=== PATIENT | male | born 1970 | race American Indian/Alaskan Native ===

== ENCOUNTER 2022-02-07 01:49 | Emergency (ER) | payer MEDICAID ==
[2022-02-07 02:22] VITALS: BP 120/76
[2022-02-07 03:31] LABS: Basophils # (Auto) 0.1 K/mm3 (0.0-0.1); Basophils % (Auto) 0.7 % (0.0-1.8); Eosinophils % (Auto) 0.4 % (0.0-4.3); Hematocrit 43.8 % (35.5-45.6); Hemoglobin 15.3 gm/dl (11.8-15.2); Lymphocytes # (Auto) 2.4 K/mm3 (1.2-5.4); Mean Corpuscular HGB Conc 35 % (32-34); Mean Corpuscular Volume 92 fl (84-94); Monocytes # (Auto) 0.7 K/mm3 (0.0-0.8); Monocytes % (Auto) 7.9 % (0.0-7.3); Platelet Count 206 K/mm3 (140-440); Red Blood Count 4.75 M/mm3 (3.65-5.03); Red Cell Distribution Width 13.4 % (13.2-15.2)
[2022-02-07 03:43] LABS: Alanine Aminotransferase 75 units/L (7-56); Albumin 4.4 g/dL (3.9-5); BUN/Creatinine Ratio 18; Bilirubin,Direct 0.4 mg/dL (0-0.2); Blood Urea Nitrogen 21 mg/dL (9-20); Calcium 8.7 mg/dL (8.4-10.2); Hemolysis Index 8
[2022-02-07] MEDS ORDERED: levETIRAcetam 1000 MG/NS 0.75% 1,000 MG/100 ML BAG IV ONE (03:45)
[2022-02-07] MEDS ORDERED: SODIUM CHLORIDE 0.9% 1000 ML 1,000 ML IV ONE (03:50)
--- NOTE | 2022-02-07 04:57 | XRay Report ---
LUMBAR SPINE 2 VIEWS INDICATION: Bilateral lumbar pain after fall. COMPARISON: No relevant prior imaging study available. FINDINGS: VERTEBRAE: No acute fracture. Normal alignment. DISC SPACES: No significant abnormality. FACET JOINTS: No significant abnormality. SOFT TISSUES: No significant abnormality. ADDITIONAL FINDINGS: No additional significant findings. IMPRESSION: 1. No acute findings. Signer Name: Kermit Murphy MD Signed: 02/07/2022 4:53 AM Workstation Name: [id number]
--- NOTE | 2022-02-07 05:14 | Cat Scan Report ---
CT HEAD WITHOUT CONTRAST INDICATION / CLINICAL INFORMATION: fall, intoxicated, hx of HIV; head/neck trauma. TECHNIQUE: All CT scans at this location are performed using CT dose reduction for ALARA by means of automated exposure control. COMPARISON: None available. FINDINGS: Motion artifact limits this exam. BRAIN PARENCHYMA: No acute intracranial hemorrhage. No evidence of recent infarct. No mass effect or midline shift. There is multifocal encephalomalacia, most notable superiorly along the left parietal lobe, likely related to prior infarcts. There is decreased attenuation along the periventricular whit e matter likely represent chronic microangiopathy. VENTRICULAR SYSTEM/EXTRA-AXIAL SPACES: Ventricles are normal for age. No extra-axial fluid collection . ORBITS: Normal as visualized. SKELETAL SYSTEM/SOFT TISSUES: Normal bones and soft tissues. PARANASAL SINUSES/MASTOID AIR CELLS: No significant abnormality. ADDITIONAL FINDINGS: None. IMPRESSION: 1. No acute intracranial abnormality. 2. Additional findings as above. Signer Name: Kermit Murphy MD Signed: 02/07/2022 5:09 AM Workstation Name: [id number]
--- NOTE | 2022-02-07 05:15 | Cat Scan Report ---
CT CERVICAL SPINE WITHOUT CONTRAST INDICATION: Intoxicated with possible neck injury after fall. COMPARISON: None available. TECHNIQUE: Axial, coronal and sagittal CT imaging of the cervical spine without contrast was performe d. All CT scans at this location are performed using CT dose reduction for ALARA by means of automat ed exposure control. FINDINGS: ALIGNMENT: Normal alignment. VERTEBRAE: No fracture. Vertebral body heights are preserved. C1 and C2 are congruent. SPONDYLOSIS: No significant spondylosis. SOFT TISSUES: No significant soft tissue abnormality. ADDITIONAL FINDINGS: No significant additional findings. IMPRESSION: 1. No acute findings. Signer Name: Kermit Murphy MD Signed: 02/07/2022 5:11 AM Workstation Name: [id number]
--- NOTE | 2022-02-07 05:31 | Emergency Department Report ---
HPI - General Chief Complaint: Hypoglycemia PUI?: No Time Seen by Provider: 02/07/22 03:45 - HPI HPI: 51-year-old male with history of HIV, prior stroke, seizure disorder, bibems for ground level fall, back pain, and hypoglycemia. Pt states "I was getting lit for my birthday b/c it's coming up!" and was drinking alcohol. He states he was sitting up top of a wall that was not more than approximately 3 feet off the ground while drinking alcohol. He states when he tried to get off, he fell, and landed on his lower back. He complains of mild lower back pain and reports he had much some difficulty getting up but was able to walk. He states bystanders called EMS EMS and EMS checked his fingerstick and it was "low." Patient states he does not have a history of diabetes and states "I only ate breakfast in the morning and nothing else." He denies any fecal or urinary incontinence or retention. No tingling numbness in his arms or legs. Pain currently 1 out of 10. ED Past Medical Hx - Past Medical History Hx CVA: Yes Hx HIV: Yes - Family History Family history: no significant - Social History Smoking Status: Smoker, Current Status Unknown Substance Use Type: Alcohol ED Review of Systems ROS: Stated complaint: HYPOGLYCEMIA Other details as noted in HPI Comment: All other systems reviewed and negative Constitutional: no symptoms reported Eyes: as per HPI. denies: eye pain, eye discharge, vision change ENT: denies: as per HPI, ear pain, throat pain, dental pain, hearing loss Respiratory: denies: no symptoms reported, see HPI, cough, orthopnea, shortness of breath, SOB with exertion, SOB at rest Cardiovascular: denies: chest pain, palpitations, dyspnea on exertion, orthopnea, edema, syncope, paroxysmal nocturnal dyspnea Gastrointestinal: denies: abdominal pain, nausea, vomiting, diarrhea, constip ation, hematemesis, melena, hematochezia Genitourinary: denies: as per HPI, urgency, dysuria, frequency, hematuria, discharge Musculoskeletal: as per HPI, back pain Skin: denies: rash, lesions, change in color, change in hair/nails, pruritus Neurological: denies: headache, weakness, numbness Psychiatric: denies: anxiety, depression, auditory hallucinations, visual hallucinations, homicidal thoughts, suicidal thoughts Hematological/Lymphatic: denies: easy bleeding, easy bruising, swollen glands Physical Exam - Physical Exam Vital Signs: Vital Signs 02/07/22 02:16 Temperature 98 F Pulse Rate 80 Respiratory 16 Rate Blood Pressure 120/76 [Right] O2 Sat by Pulse 96 Oximetry General: Gen: pt is well appearing, no acute distress HEENT: Normocephalic atraumatic pupils equally round and reactive to light extraocular muscles intact sclera anicteric Neck: Full range of motion, no midline spinal tenderness palpation, no JVD, no carotid bruits, no nuchal rigidity CVS: S1-S2 regular rate and rhythm with no gallops rubs or murmurs, chest wall nontender Pulmonary: Clear to auscultation bilaterally, no wheezes rales or rhonchi Abdomen: Soft nondistended nontender no guarding or rebound tenderness, no palpable deformities or step-offs, normal active bowel sounds, no hepatosplenomegaly, no pulsatile masses : Deferred Extremities: No cyanosis no clubbing no edema, intact distal peripheral pulses, Integumentary: Skin normal, no petechia no purpura no abscess no lacerations no evidence of trauma no evidence of infection Neuro: Patient is awake alert and oriented to person place time situation, mentating well, cranial nerves II through XII intact, no focal neurodeficits, sensation grossly tact Psych: Calm cooperative, mood affect normal ED Course Vital Signs 02/07/22 02:16 Temperature 98 F Pulse Rate 80 Respiratory 16 Rate Blood Pressure 120/76 [Right] O2 Sat by Pulse 96 Oximetry - Reevaluation(s) Reevaluation #1: 02/07/22 05:34 Patient reassessed. He is comfortable and well-appearing, will continue to m onitor. ED Medical Decision Making - Lab Data Result diagrams: 02/07/22 03:01 02/07/22 03:01 - Radiology Data Radiology results: report reviewed - Medical Decision Making 51-year-old male with multiple medical comorbidities presents for hypoglycemia, ground-level fall, alcohol intoxication.. Vital signs stable. Labs reviewed. Patient's rmentation remained normal throughout his ED course. He has no clinical signs/symptoms of intoxiction. Serum glucose levels improved with intervention in the ER and remained stable. Diagnostic imaging negative for any acute pathology. On exam patient has no soft tissue tenderness palpation and no overt evidence of trauma or infection. No further emergent work-up warranted. Patient stable for discharge to home. Critical Care Time: No Critical care attestation.: If time is entered above; I have spent that time in minutes in the direct care of this critically ill patient, excluding procedure time. ED Disposition Clinical Impression: Hypoglycemia, Alcohol intoxication Disposition: HOME / SELF CARE / HOMELESS Is pt being admited?: No Does the pt Need Aspirin: No Condition: Stable Instructions: Binge-Drinking Information, Adult, Hypoglycemia, [id number] Additional Instructions: Call your primary care doctor to schedule immediate follow-up appointment. This is very important. Observe your symptoms very carefully. Return to the nearest emergency department soon as possible if you develop dizziness, lightheadedness, vomiting, inability tolerate liquids or solids, severe worsening pain, or if any other new worrisome symptoms develop. Referrals: PRIMARY CARE, [Primary Care Provider] - 3-5 Days
[2022-02-07] MEDS ORDERED: DEXTROSE 50% IN WATER (25GM) 50 ML SYRINGE IV ONE (05:39)
== END 2022-02-07 07:04 | disposition home or self-care (01) ==
LOC: ED 01:49
DX: E16.2 Hypoglycemia, unspecified (principal); F10.129 Alcohol abuse with intoxication, unspecified; F17.200 Nicotine dependence, unspecified, uncomplicated
CPT/HCPCS: 36415; 70450; 72100; 72125; 80048; 80076; 82962; 85025; 96374; 96375; 99285; J1953; J3490; J7030; 80320; G0480